=== PATIENT | female | born 1985 | race Caucasian/White ===

== ENCOUNTER 2021-07-23 17:58 | Emergency (ER) | payer BC ==
[2021-07-23] MEDS ORDERED: Ibuprofen 600 MG Tab PO ONE (18:59)
--- NOTE | 2021-07-23 19:03 | EDM.PDOC ---
ED HPI GENERAL MEDICAL PROBLEM - General Chief Complaint: Chest Pain Stated Complaint: POSS COVID Time Seen by Provider: 07/23/21 18:47 Source of Information: Reports: Patient, RN Notes Reviewed History Limitations: Reports: No Limitations - History of Present Illness INITIAL COMMENTS - FREE TEXT/NARRATIVE: Patient is a 35-year-old female presenting to the emergency department with complaints of Covid. Reports symptom onset on Wednesday of this week. States she had diarrhea on that day, however that is since resolved. She did have a fairly significant cough which she states is improving. Today, she reports intermittent chest pains, which is not present at this time. States that she feels more short of breath. She does have a history of chronic shortness of breath of unknown etiology. Also reports dizziness intermittently. She reports that she also has chronic tachycardia. She continues to have body aches but denies any recent fevers. She has not taken any Tylenol or ibuprofen today. Patient was not vaccinated for Covid. 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 ED EXAM, GENERAL - Physical Exam Exam: See Below Exam Limited By: No Limitations General Appearance: Alert, WD/WN, No Apparent Distress Respiratory/Chest: No Respiratory Distress, Lungs Clear, Normal Breath Sounds, No Accessory Muscle Use, Chest Non-Tender Cardiovascular: Normal Peripheral Pulses, Regular Rate, Rhythm, No Edema, No Gallop, No JVD, No Murmur, No Rub GI/Abdominal: Normal Bowel Sounds, Soft, Non-Tender, No Organomegaly, No Distention, No Abnormal Bruit, No Mass Neurological: Alert, Oriented, CN II-XII Intact, Normal Cognition, Normal Gait, Normal Reflexes, No Motor/Sensory Deficits Psychiatric: Normal Affect, Normal Mood Skin Exam: Warm, Dry, Intact, Normal Color, No Rash #1 Interpretation EKG Date: 07/23/21 Time: 18:51 Rhythm: NSR Rate (Beats/Min): 112 [place]: Normal P-Wave: Present QRS: Normal ST-T: Normal QT: Normal Course - Vital Signs Last Recorded V/S: Last Vital Signs Temp 97.7 F 07/23/21 18:41 Pulse 124 H 07/23/21 18:41 Resp 24 H 07/23/21 18:41 BP 152/102 H 07/23/21 18:41 Pulse Ox 96 07/23/21 18:41 - Orders/Labs/Meds Orders: Active Orders 24 hr Category Date Time Status Chest 1V Frontal [CR] Stat Exams 07/23/21 18:48 Taken Labs: Laboratory Tests 07/23/21 07/23/21 07/23/21 Range/Units 19:05 19:05 19:05 WBC 5.77 (3.98-10.04) K/mm3 RBC 4.75 (3.98-5.22) M/mm3 Hgb 14.5 (11.2-15.7) gm/dl Hct 41.6 (34.1-44.9) % MCV 87.6 (79.4-94.8) fl MCH 30.5 (25.6-32.2) pg MCHC 34.9 (32.2-35.5) g/dl RDW Std Deviation 41.6 (36.4-46.3) fL Plt Count 174 L (182-369) K/mm3 MPV 11.8 (9.4-12.3) fl Neut % (Auto) 77.3 H (34.0-71.1) % Lymph % (Auto) 14.7 L (19.3-51.7) % [place] % (Auto) 7.3 (4.7-12.5) % Eos % (Auto) 0.3 L (0.7-5.8) Baso % (Auto) 0.2 (0.1-1.2) % Neut # (Auto) 4.46 (1.56-6.13) K/mm3 Lymph # (Auto) 0.85 L (1.18-3.74) K/mm3 [place] # (Auto) 0.42 H (0.24-0.36) K/mm3 Eos # (Auto) 0.02 L (0.04-0.36) K/mm3 Baso # (Auto) 0.01 (0.01-0.08) K/mm3 D-Dimer, Quantitative 0.55 H (0.19-0.50) mg/L Sodium 135 L (136-145) mEq/L Potassium 3.6 (3.5-5.1) mEq/L Chloride 99 (98-107) mEq/L Carbon Dioxide 26 (21-32) mEq/L Anion Gap 13.6 (5-15) BUN 8 (7-18) mg/dL Creatinine 1.0 (0.55-1.02) mg/dL Est Cr Clr Drug Dosing 70.66 mL/min Estimated GFR (MDRD) > 60 (>60) mL/min BUN/Creatinine Ratio 8.0 L (14-18) Glucose 278 H (70-99) mg/dL Calcium 8.7 (8.5-10.1) mg/dL Total Bilirubin 0.4 (0.2-1.0) mg/dL AST 28 (15-37) U/L ALT 38 (14-59) U/L Alkaline Phosphatase 113 (46-116) U/L Troponin I < 0.017 (0.00-0.056) ng/mL Total Protein 8.0 (6.4-8.2) g/dl Albumin 3.7 (3.4-5.0) g/dl Globulin 4.3 gm/dL Albumin/Globulin Ratio 0.9 L (1-2) Meds: Medications Discontinued Medications Generic Name Dose Route Start Last Admin Trade Name Freq PRN Reason Stop Dose Admin Ibuprofen 600 mg 07/23/21 18:59 07/23/21 19:19 Ibuprofen 600 Mg Tab PO 07/23/21 19:00 600 mg ONETIME ONE Administration - Re-Assessments/Exams Free Text/Narrative Re-Assessment/Exam: Patient is a 35-year-old female presenting to the emergency department with known domestic COVID-19. She reports intermittent chest pains as well as shortness of breath and dizziness. On arrival, oxygen saturations are 96% on room air. She was slightly tachypneic at 24 and tachycardic at 124. She is afebrile. Patient reports chronic tachycardia as well as chronic shortness of breath. On exam, lung sounds are clear. She has not taken any Tylenol or ibuprofen today. Have ordered ibuprofen 60 mg p.o. Will complete blood work, chest x-ray, EKG. 07/23/21 20:07 Hematology significant for a D-dimer minimally elevated 0.55 which is to be expected given her known diagnosis of COVID-19. Troponin is undetectably low. Patient is hyperglycemic at 278, however blood work is otherwise normal. Chest x-ray shows no evidence of pneumonia. Oxygen saturations have maintained 95 to 98% on room air. Patient will be discharged home. Recommend symptomatic treatment. Discussed return precautions. Discharge instructions as documented. Departure - Departure Time of Disposition: 20:07 Disposition: Home, Self-Care 01 Condition: Good Clinical Impression: COVID-19 - Discharge Information *PRESCRIPTION DRUG MONITORING PROGRAM REVIEWED*: No *COPY OF PRESCRIPTION DRUG MONITORING REPORT IN PATIENT SHIRLENE: No Instructions: COVID-19 Referrals: PCP,None [Primary Care Provider] - Forms: ED Department Discharge Additional Instructions: You were seen in the emergency department today for evaluation of your Covid symptoms. Work-up included blood work, chest x-ray, EKG. Results of your work-up showed an elevated blood sugar, but were otherwise normal given your known diagnosis of Covid. I would recommend that you follow-up with your primary care provider at the next available visit to follow-up on your elevated blood sugar. Recommend rest as well as increase fluid intake. Tylenol or ibuprofen as needed for pain. Continue to monitor your oxygen saturations at home. You are saturating below 90% or you experience any other new or worsening symptoms of concern, please not hesitate to return to the emergency department for reevaluation. Sepsis Event Note (ED) - Evaluation Sepsis Screening Result: No Definite Risk - Focused Exam Vital Signs: Vital Signs Temp Pulse Resp BP Pulse Ox 07/23/21 18:41 97.7 F 124 H 24 H 152/102 H 96 - My Orders Last 24 Hours: My Active Orders 07/23/21 18:48 Chest 1V Frontal [CR] Stat - Assessment/Plan Last 24 Hours: My Active Orders 07/23/21 18:48 Chest 1V Frontal [CR] Stat
--- NOTE | 2021-07-23 20:18 | CR ---
Chest: Portable view of the chest was obtained. Comparison: No prior chest imaging is available. Heart size and mediastinum are within normal limits. Lungs are clear with no acute parenchymal change. Bony structures appear normal for patient's age. Impression: 1. Nothing acute is seen on portable chest x-ray. Diagnostic code #1
== END 2021-07-23 20:22 | disposition home or self-care (01) ==
LOC: JD.ED 17:58
DX: U07.1 COVID-19 (principal); E66.9 Obesity, unspecified; Z68.41 Body mass index [BMI] 40.0-44.9, adult; Z79.899 Other long term (current) drug therapy
CPT/HCPCS: 36415; 71045; 80053; 84484; 85025; 85379; 93005; 99285; A9270

== ENCOUNTER 2021-07-26 16:49 | Emergency (ER) | payer BC ==
--- NOTE | 2021-07-26 17:46 | EDM.PDOC ---
ED HPI GENERAL MEDICAL PROBLEM - General Chief Complaint: Respiratory Problem Stated Complaint: COVID + Time Seen by Provider: 07/26/21 17:30 Source of Information: Reports: Patient, Old Records History Limitations: Reports: No Limitations - History of Present Illness INITIAL COMMENTS - FREE TEXT/NARRATIVE: Patient 35-year-old female with past medical history for chronic shortness of breath presenting with chief complaint of cough, chest pain and shortness of breath. Patient states that she started having cough with symptoms about 1 week ago. She was in the emergency room 2 days ago for similar symptoms. She had a work-up done which included blood work and was ultimately discharged. Patient states since then, she has been getting worse. She feels more short of breath at home. She says her finger pulse oximeter is indicating her oxygen saturation at home is 87%. Patient reports some slight left upper chest pain which is unchanged with exertion. She does seem to think it gets worse with cough. No dizziness, no loss of appetite, no vomiting or diarrhea. 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: Endocrine/Metabolic History: Reports: Obesity/BMI 30+ - Infectious Disease History Infectious Disease History: Reports: Novel Coronavirus - Past Surgical History Female Surgical History: Reports: Section Endocrine Surgical History: Reports: Thyroidectomy Social & Family History - Tobacco Use Tobacco Use Status *Q: Never Tobacco User Second Hand Smoke Exposure: No - Caffeine Use Caffeine Use: Reports: Coffee, Energy Drinks, Soda - Recreational Drug Use Recreational Drug Use: No ED ROS GENERAL - Review of Systems Review Of Systems: See Below Free Text/Narrative/Comment: In addition to that documented in the HPI above, the additional ROS was obtained: Constitutional: Denies fevers or chills Eyes: Denies vision changes ENMT: Denies sore throat CV: Per HPI Resp: Per HPI GI: Denies vomiting or diarrhea : Denies painful urination MSK: Denies recent trauma Skin: Denies new rashes Neuro: Denies new numbness or tingling or weakness Endocrine: Denies unexpected weight loss Heme: Denies bleeding disorders ED EXAM, GENERAL - Physical Exam Exam: See Below Free Text/Narrative:: I have reviewed the triage vital signs Const: Well nourished, well developed, appears stated age Eyes: extraocular movements are intact, no conjunctival injection HENT: No signs of trauma or swelling, Neck supple without meningismus CV: Tachycardic but regular rhythm, Warm, well-perfused extremities RESP: Unlabored respiratory effort GI: soft, non-tender, non-distended, no masses MSK: No gross deformities appreciated Skin: Warm, dry. No rashes Neuro: Alert, moving all 4 extremities symmetrically. Psych: Appropriate mood and affect. Course - Vital Signs Last Recorded V/S: Last Vital Signs Temp 36.4 C 07/26/21 17:30 Pulse 109 H 07/26/21 19:15 Resp 27 H 07/26/21 19:15 BP 138/96 H 07/26/21 17:30 Pulse Ox 92 L 07/26/21 19:15 - Orders/Labs/Meds Labs: Laboratory Tests 07/26/21 07/26/21 Range/Units 17:45 17:45 WBC 3.43 L (3.98-10.04) K/mm3 RBC 4.81 (3.98-5.22) M/mm3 Hgb 14.4 (11.2-15.7) gm/dl Hct 41.8 (34.1-44.9) % MCV 86.9 (79.4-94.8) fl MCH 29.9 (25.6-32.2) pg MCHC 34.4 (32.2-35.5) g/dl RDW Std Deviation 40.8 (36.4-46.3) fL Plt Count 145 L (182-369) K/mm3 MPV 12.1 (9.4-12.3) fl Neut % (Auto) 68.2 (34.0-71.1) % Lymph % (Auto) 24.2 (19.3-51.7) % [place] % (Auto) 7.0 (4.7-12.5) % Eos % (Auto) 0 L (0.7-5.8) Baso % (Auto) 0.3 (0.1-1.2) % Neut # (Auto) 2.34 (1.56-6.13) K/mm3 Lymph # (Auto) 0.83 L (1.18-3.74) K/mm3 [place] # (Auto) 0.24 (0.24-0.36) K/mm3 Eos # (Auto) 0.00 L (0.04-0.36) K/mm3 Baso # (Auto) 0.01 (0.01-0.08) K/mm3 Manual Slide Review Abnormal smear Sodium 135 L (136-145) mEq/L Potassium 3.3 L (3.5-5.1) mEq/L Chloride 98 (98-107) mEq/L Carbon Dioxide 26 (21-32) mEq/L Anion Gap 14.3 (5-15) BUN 10 (7-18) mg/dL Creatinine 0.9 (0.55-1.02) mg/dL Est Cr Clr Drug Dosing 78.51 mL/min Estimated GFR (MDRD) > 60 (>60) mL/min BUN/Creatinine Ratio 11.1 L (14-18) Glucose 214 H (70-99) mg/dL Calcium 8.6 (8.5-10.1) mg/dL Total Bilirubin 0.5 (0.2-1.0) mg/dL AST 32 (15-37) U/L ALT 37 (14-59) U/L Alkaline Phosphatase 96 (46-116) U/L Troponin I < 0.017 (0.00-0.056) ng/mL C-Reactive Protein 5.5 H* (<1.0) mg/dL Total Protein 7.8 (6.4-8.2) g/dl Albumin 3.5 (3.4-5.0) g/dl Globulin 4.3 gm/dL Albumin/Globulin Ratio 0.8 L (1-2) Meds: Medications Discontinued Medications Generic Name Dose Route Start Last Admin Trade Name Freq PRN Reason Stop Dose Admin Dexamethasone 6 mg 07/26/21 18:39 07/26/21 19:14 Dexamethasone 4 Mg/Ml 5 Ml Mdv IV 07/26/21 18:40 6 mg ONETIME ONE Administration Iopamidol 100 ml 07/26/21 17:50 07/26/21 18:12 Iopamidol 755 Mg/Ml 100 Ml Bottle IVPUSH 07/26/21 17:51 100 ml ONETIME ONE Administration Sodium Chloride 10 ml 07/26/21 17:50 07/26/21 18:12 Sodium Chloride 0.9% 10 Ml Syringe FLUSH 10 ml ONETIME PRN Administration Keep Vein Open Departure - Departure Time of Disposition: 19:09 Disposition: Home, Self-Care 01 Clinical Impression: COVID-19 - Discharge Information Prescriptions: dexAMETHasone [Decadron] 6 mg PO DAILY #10 tablet Instructions: 10 Things You Can Do to Manage Your COVID-19 Symptoms at Home - [facility] (05/02/2021) Referrals: PCP,None [Primary Care Provider] - Forms: ED Department Discharge Sepsis Event Note (ED) - Evaluation Sepsis Screening Result: No Definite Risk - Assessment/Plan Assessment:: Patient is 35-year-old female presenting to the emergency room with COVID-19 and hypoxia. No significant respiratory distress. Oxygen levels none none monitored between 88 and 92%. Work-up does not demonstrate any evidence of pulmonary embolism or other etiology. At this point, patient will be initiated on dexamethasone and home oxygen. Return precautions been discussed. Patient agrees with plan of care.
[2021-07-26] MEDS ORDERED: Iopamidol 755 Mg/ML 100 ML Bottle IVPUSH ONE (17:50)
[2021-07-26] MEDS ORDERED: Sodium Chloride 0.9% 10 ML Syringe FLUSH PRN (17:50)
--- NOTE | 2021-07-26 18:25 | CT ---
CT chest Technique: Multiple axial sections were obtained from above the lung apices inferiorly through the lung bases. Intravenous contrast was utilized. Study has been performed as a pulmonary angiogram protocol. Comparison: No prior chest CT studies available, prior chest x-ray of 07/23/21. Findings: Pulmonary arteries are well opacified. No filling defects are seen to indicate pulmonary embolism. Thoracic aorta shows no aneurysm. Mediastinum shows no adenopathy. No axillary adenopathy is seen. No pericardial thickening is seen. Diffuse fatty infiltration is seen within the liver. Other portions of the visualized upper abdominal structures show no discrete abnormality. Lung window settings were reviewed which show scattered parenchymal densities most prominent peripherally. Findings have the appearance of mild to moderate diffuse COVID pneumonia. No pleural effusions are seen. Bone window settings were reviewed. Slight degenerative spurring is noted within the mid and lower thoracic spine. No acute osseous abnormality is appreciated. Impression: 1. No findings of pulmonary embolism. 2. Patchy areas of increased density within both lungs having the appearance of mild to moderate COVID pneumonia. 3. Fatty infiltration within the liver. Slight degenerative spurring within the spine. Diagnostic code #3
[2021-07-26] MEDS ORDERED: Dexamethasone 4 MG/ML 5 ML MDV IV ONE (18:39)
== END 2021-07-26 19:25 | disposition home or self-care (01) ==
LOC: JD.ED 16:49
DX: U07.1 COVID-19 (principal); E66.9 Obesity, unspecified; Z79.899 Other long term (current) drug therapy; Z86.16 Personal history of COVID-19; Z68.41 Body mass index [BMI] 40.0-44.9, adult
CPT/HCPCS: 36415; 71275; 80053; 84484; 85025; 86140; 96374; 99285; J1100; Q9967

== ENCOUNTER 2024-01-27 20:00 | Emergency (ER) | payer BC, OTHER ==
[2024-01-27] MEDS: Ketorolac 15 MG/ML SDV IM ONE (21:02)
== END 2024-01-27 21:16 | disposition home or self-care (01) ==
LOC: JD.ED 20:00
DX: M62.838 Other muscle spasm (principal); E66.9 Obesity, unspecified; Z79.899 Other long term (current) drug therapy; Z86.16 Personal history of COVID-19; Z68.34 Body mass index [BMI] 34.0-34.9, adult; V89.2XXA Person injured in unspecified motor-vehicle accident, traffic, initial encounter
CPT/HCPCS: 96372; 99283; J1885